=== PATIENT | female | born 1950 | race African-American/Black ===

== ENCOUNTER 2017-06-08 05:11 | Day surgery (SDC) | payer OTHER ==
[~2017-06-08] VITALS: Ht 170.2 cm; Wt 78.4 kg
[~2017-06-08 05:11] MED LIST: CALPHRON667 MG PO; COZAAR100 MG PO; DAILY VITE1 EAC1 PO; ERGOCALCIF50000 UNIT PO; LASIX80 MG PO; NORVASC10 MG PO
[2017-06-08 06:01] VITALS: BP 166/105
[2017-06-08 06:37] LABS: CHLORIDE 98 MEQ/L (99-109); CREATININE 5.3 MG/DL (0.6-1.3); GFR ESTIMATE (CALCULATED) 10 mL/min/; GLUCOSE 95 mg/dL (70-99); POTASSIUM 4.2 MEQ/L (3.7-5.4); SODIUM 136 MEQ/L (136-147); UREA NITROGEN (BUN) 27 mg/dL (9-23)
[2017-06-08 06:38] LABS: HEMATOCRIT 40.2 % (36.0-46.0); HEMOGLOBIN 12.2 G/DL (11.9-15.5); MCH 26.9 PG (29.0-34.0); MCHC 30.3 G/DL (30.0-36.0); MCV 88.5 FL (83-99); RBC DIS.WIDTH-SD 55.1 % (39-53); RED BLOOD COUNT 4.54 M/uL (3.80-5.20); WHITE BLOOD COUNT 6.1 K/uL (4.1-10.2)
[2017-06-08 07:13] LABS: PLAT.SUFFICIENCY ADEQUATE; PLATELET COUNT 212 K/uL (156-360)
[2017-06-08] MEDS ORDERED: NORCO 5/3251 TABLET PO (09:35)
[2017-06-08 10:45] VITALS: BP 155/80
[2017-06-08 11:41] VITALS: BP 142/83
== END 2017-06-08 11:40 | disposition home or self-care (01) ==
LOC: SDC 05:11
PROVIDERS: Surgery
DX: I12.0 Hypertensive chronic kidney disease with stage 5 chronic kidney disease or end stage renal disease (principal); N18.6 End stage renal disease; Z99.2 Dependence on renal dialysis; D63.8 Anemia in other chronic diseases classified elsewhere; E07.9 Disorder of thyroid, unspecified; E21.3 Hyperparathyroidism, unspecified; Z90.710 Acquired absence of both cervix and uterus; J44.9 Chronic obstructive pulmonary disease, unspecified; F17.200 Nicotine dependence, unspecified, uncomplicated; E66.3 Overweight; Z68.27 Body mass index [BMI] 27.0-27.9, adult; K66.0 Peritoneal adhesions (postprocedural) (postinfection)
CPT/HCPCS: 80048; 85027; 93005; C1750; J0131; J0330; J0690; J1100; J1170; J2405; J2710; J2765; J3010; S0020